=== PATIENT | male | born 1940 | race Caucasian/White ===

== ENCOUNTER → 2017-12-23 | Outpatient (CLI) | payer OTHER | END | disposition home or self-care (01) | LOC: PCVCCLINIC 15:49 | PROVIDERS: ATTEND Internal Medicine | DX: I48.91 Unspecified atrial fibrillation (principal); I48.2 Chronic atrial fibrillation; R00.1 Bradycardia, unspecified; I10 Essential (primary) hypertension; I63.419 Cerebral infarction due to embolism of unspecified middle cerebral artery; I37.0 Nonrheumatic pulmonary valve stenosis; E78.5 Hyperlipidemia, unspecified; Z79.01 Long term (current) use of anticoagulants | CPT/HCPCS: 80061; 93005; G0463 ==

== ENCOUNTER → 2018-01-03 | Outpatient (CLI) | payer OTHER ==
--- NOTE | 2018-01-03 15:53 | PCVCIMAG ---
APPROVED REPORT Patient Location: Echo lab- [facility] Room #: 1 Stress Nurse: Chelle Kumari RN INDICATIONS: Bradycardia,dizziness, permanent atrial fibrillation The patient exercised according to the PENNIE protocol for 8:10 mins; achieving a work level of 10.1 METS. The resting heart rate of 55 bpm jose to a maximum heart rate of 171 bpm. This value represent 118% of the maximal, age-predicted heart rate. The resting blood pressure of 146/70 mmHg, jose to a maximum blood pressure of 190/70 mmHg. The exercise test was stopped due to fatigue. Resting EKG: Atrial fibrillation with diffuse nonspecific ST and T wave abnormality Stress EKG: Occasional premature ventricular complexes. Good heart rate response with exercise. No diagnostic ischemic electrocardiographic changes Conclusion 1. Maximal treadmill exercise study in negative for ischemia. Good chronotropic response to exercise 2. The study was associated with us capacity (10.1 METS)
== END | disposition home or self-care (01) ==
LOC: PCVCIMAG 14:40
PROVIDERS: ATTEND Internal Medicine
DX: I48.2 Chronic atrial fibrillation (principal); I10 Essential (primary) hypertension; I63.9 Cerebral infarction, unspecified; I37.0 Nonrheumatic pulmonary valve stenosis; R00.1 Bradycardia, unspecified; R42 Dizziness and giddiness
CPT/HCPCS: 93017

== ENCOUNTER → 2018-07-18 | Outpatient (CLI) | payer OTHER | END | disposition home or self-care (01) | LOC: PCVCCLINIC 12:39 | PROVIDERS: ATTEND Internal Medicine | DX: I48.2 Chronic atrial fibrillation (principal); R00.1 Bradycardia, unspecified; I10 Essential (primary) hypertension; R94.31 Abnormal electrocardiogram [ECG] [EKG]; E78.5 Hyperlipidemia, unspecified; I37.0 Nonrheumatic pulmonary valve stenosis; I63.419 Cerebral infarction due to embolism of unspecified middle cerebral artery; K21.9 Gastro-esophageal reflux disease without esophagitis; F17.210 Nicotine dependence, cigarettes, uncomplicated; Z79.01 Long term (current) use of anticoagulants; Z79.899 Other long term (current) drug therapy | CPT/HCPCS: 36415; 80061; 93005; G0463 ==

== ENCOUNTER → 2019-01-19 | Outpatient (CLI) | payer OTHER ==
--- NOTE | 2019-01-19 12:52 | PCVCIMAG ---
APPROVED REPORT Study performed: 01/19/2019 09:41:08 EXAM: Comprehensive 2D, Doppler, and color-flow Echocardiogram Patient Location: Echo lab Status: routine BSA: 2.04 HR: 63 bpmBP: 158/80 mmHg Rhythm: Atrial Fibrillation Other Information Study Quality: Good Risk Factors: Cardiac Risk Factors: HTN, Hyperlipidemia Indications CVA/TIA Atrial Fibrillation Pulmonic stenosis 2D Dimensions IVSd: 13.34 (7-11mm)LVOT Diam: 19.41 (18-24mm) LVDd: 48.58 mm PWd: 12.58 (7-11mm)Ascending Ao: 36.20 (22-36mm) LVDs: 29.68 (25-40mm) Left Atrium: 52.81 (27-40mm) Aortic Root: 28.21 mm LV Single Plane 4CH: 48.98 % LV Single Plane 2CH: 56.45 % Biplane EF: 53.0 % Volumes Left Atrial Volume (Systole) Single Plane 4CH: 156.95 mLSingle Plane 2CH: 133.21 mL LA ESV Index: 71.00 mL/m2 Aortic Valve AoV Peak Agapito.: 1.88 m/s AO Peak Gr.: 15.36 mmHgLVOT Max P.59 mmHg LVOT Max V: 1.05 m/s JUDE Vmax: 1.65 cm2 Mitral Valve E/A Ratio: 1.0 MV E Max Agapito.: 1.41 m/s MV A Agapito.: 1.42 m/s Pulmonary Valve PV Peak Agapito.: 2.28 m/sPV Peak Gr.: 24.03 mmHg WA End Vmax: 0.78 m/s Tricuspid Valve TR Peak Agapito.: 3.23 m/s TR Peak Gr.: 48.65 mmHg Left Ventricle The left ventricle is normal size. There is normal LV segmental wall motion. There is normal left ventricular wall thickness. Left ventricular systolic function is normal. The left ventricular ejection fraction is within the normal range. LVEF is 60%. This study is not technically sufficient to allow evaluation of the LV diastolic function due to atrial fibrillation. Right Ventricle Right ventricle is dilated. The right ventricular systolic function is normal. Atria Left atrium is severely dilated. Right atrium is severely dilated. Aortic Valve The aortic valve is sclerotic. Mild aortic regurgitation. There is no aortic valvular stenosis. Mitral Valve The mitral valve is normal in structure. Mild mitral regurgitation. No evidence of mitral valve stenosis. Tricuspid Valve The tricuspid valve is normal in structure. There is no tricuspid valve regurgitation noted. Pulmonary artery pressure of 55 mmHg Pulmonic Valve Pulmonic stenosis. Peak gradient is 32mmHg. Mean gradient is 18mmHg. Mild pulmonic regurgitation. Great Vessels The aortic root is normal in size. IVC is normal in size and collapses >50% with inspiration. Pericardium There is no pericardial effusion. <Conclusion> Left ventricular systolic function is normal. There is normal LV segmental wall motion. LVEF is 60%. Both atria are severely dilated. The aortic valve is sclerotic. Mild aortic regurgitation, no stenosis. The mitral valve is normal in structure. Mild mitral regurgitation. Moderate pulmonic stenosis. Peak gradient is 32mmHg. Mean gradient is 18mmHg. There is no tricuspid valve regurgitation noted. Pulmonary artery pressure of 55 mmHg There is no pericardial effusion.
== END | disposition home or self-care (01) ==
LOC: PCVCIMAG 09:34
PROVIDERS: ATTEND Internal Medicine
DX: I08.8 Other rheumatic multiple valve diseases (principal); E78.5 Hyperlipidemia, unspecified; I10 Essential (primary) hypertension; I48.2 Chronic atrial fibrillation; Z79.01 Long term (current) use of anticoagulants
CPT/HCPCS: 93306